=== PATIENT | male | born 1965 | race Caucasian/White ===

== ENCOUNTER → 2019-10-13 13:47 | Outpatient (BNVA) | payer MEDICAID, SELFPAY | PROVIDERS: Family Provider Family Medicine; PCP Family Medicine; Visit Provider Anesthesiology | DX: G89.29 Other chronic pain (principal); M54.16 Radiculopathy, lumbar region; M47.812 Spondylosis without myelopathy or radiculopathy, cervical region; Z79.891 Long term (current) use of opiate analgesic | CPT/HCPCS: 99214 ==

== ENCOUNTER → 2019-12-10 13:07 | Outpatient (BNVA) | payer MEDICAID, SELFPAY | PROVIDERS: Family Provider Family Medicine; PCP Family Medicine; Visit Provider Nurse Practitioner | DX: G89.29 Other chronic pain (principal); M54.16 Radiculopathy, lumbar region; M50.90 Cervical disc disorder, unspecified, unspecified cervical region; M47.812 Spondylosis without myelopathy or radiculopathy, cervical region; Z79.891 Long term (current) use of opiate analgesic | CPT/HCPCS: 99214 ==

== ENCOUNTER 2020-01-04 13:43 | Outpatient (CLI) | payer MEDICAID, SELFPAY ==
--- NOTE | 2020-01-04 13:49 | MR_ITS ---
WS: [id number] MRI CERVICAL SPINE HISTORY: increased neck pain COMPARISON: 07/01/2018 Technically limited evaluation of the cervical spine. There is significant motion artifact. Straightening of the normal cervical lordosis. Marrow edema and C6 and C7. There is slight anterior w edging of the C5 vertebral body but similar to the prior study. Small amount of edema in the interspi nous muscle at the C7 level. Signal within the cord is poorly evaluated due to artifact. No atrophy or enlargement is appreciated. Craniocervical junction, C1 and C2 relationship, odontoid process and soft tissues are normal. C2-C3: Bilateral osteophytes and facet disease. Moderate stenosis bilaterally but greater on the RIGH T. C3-C4: Osteophytic ridging and disc bulging. Mild encroachment upon the ventral thecal sac and a smal l central disc protrusion. Mild central and moderate bilateral foraminal narrowing. C4-C5: Osteophytic ridging and annular disc bulging and facet disease. Mild central and moderate bila teral foraminal stenosis. C5-C6: Near complete effacement of CSF around the cord. Annular disc bulging. Suspect there is probab ly a LEFT paracentral disc protrusion. There is at least moderate central and bilateral foraminal yusuf nosis. C6-C7: Osteophytic ridging with central disc protrusions. Severe central and bilateral foraminal sten osis. C7-T1: Normal. Paraspinal soft tissues are poorly visualized. MR/MR cervical spin wo con* [id number] IMPRESSION: 1. Quality of this examination is significantly limited by motion. Mild progre ssion of disc disease and stenoses since 07/01/2018. 2. Multilevel areas of significant stenosis. The exact etiology of the stenos is is difficult to visualize at each level. Combination of disc disease, facet disease and osteophytes. 3. Severe central and bilateral foraminal stenosis at C6-7. Mild progression s joanne the prior study. 4. Moderate bilateral foraminal stenosis at C2-3 and C3-4 and C4-5. 5. Moderate central and bilateral foraminal stenosis at C5-6. There is probabl y a LEFT paracentral disc protrusion at this level or asymmetric osteophyte.
== END 2020-01-04 13:44 | disposition home or self-care (01) ==
LOC: RADWPI 13:46
PROVIDERS: Family Provider Family Medicine; PCP Family Medicine; Visit Provider Nurse Practitioner
DX: M54.2 Cervicalgia (principal); M48.02 Spinal stenosis, cervical region
CPT/HCPCS: 72141

== ENCOUNTER → 2020-02-22 15:58 | Outpatient (BNVA) | payer MEDICAID, SELFPAY | PROVIDERS: Family Provider Family Medicine; PCP Family Medicine; Visit Provider Family Medicine | DX: E11.69 Type 2 diabetes mellitus with other specified complication (principal); E03.9 Hypothyroidism, unspecified; I10 Essential (primary) hypertension | CPT/HCPCS: 80053; 83036; 84439; 84443; 84481 ==

== ENCOUNTER → 2020-03-25 10:55 | Outpatient (BNVA) | payer MEDICAID, SELFPAY | PROVIDERS: Family Provider Family Medicine; PCP Family Medicine; Visit Provider Anesthesiology | DX: G89.29 Other chronic pain (principal); M54.42 Lumbago with sciatica, left side; M54.16 Radiculopathy, lumbar region; M47.812 Spondylosis without myelopathy or radiculopathy, cervical region; M54.9 Dorsalgia, unspecified; Z79.891 Long term (current) use of opiate analgesic | CPT/HCPCS: 99214 ==

== ENCOUNTER → 2020-05-27 10:07 | Outpatient (BNVA) | payer MEDICAID, SELFPAY | PROVIDERS: Family Provider Family Medicine; PCP Family Medicine; Visit Provider Anesthesiology | DX: G89.29 Other chronic pain (principal); M54.41 Lumbago with sciatica, right side; M54.16 Radiculopathy, lumbar region; M47.812 Spondylosis without myelopathy or radiculopathy, cervical region; M54.9 Dorsalgia, unspecified; Z79.891 Long term (current) use of opiate analgesic | CPT/HCPCS: 99214 ==

== ENCOUNTER → 2020-07-13 11:21 | Outpatient (BNVA) | payer MEDICAID, SELFPAY | PROVIDERS: Family Provider Family Medicine; PCP Family Medicine; Visit Provider Family Medicine | DX: E03.9 Hypothyroidism, unspecified (principal); I10 Essential (primary) hypertension; E11.69 Type 2 diabetes mellitus with other specified complication; F33.1 Major depressive disorder, recurrent, moderate; Z79.899 Other long term (current) drug therapy | CPT/HCPCS: 80053; 80061; 83036; 84439; 84443; 84481 ==

== ENCOUNTER → 2020-07-22 09:36 | Outpatient (BNVA) | payer MEDICAID, SELFPAY | PROVIDERS: Family Provider Family Medicine; PCP Family Medicine; Visit Provider Anesthesiology | DX: G89.29 Other chronic pain (principal); M54.41 Lumbago with sciatica, right side; M54.16 Radiculopathy, lumbar region; M47.812 Spondylosis without myelopathy or radiculopathy, cervical region; M54.9 Dorsalgia, unspecified; Z79.891 Long term (current) use of opiate analgesic | CPT/HCPCS: 99214 ==

== ENCOUNTER → 2020-08-18 13:55 | Outpatient (BNVA) | payer MEDICAID, SELFPAY | PROVIDERS: Family Provider Family Medicine; PCP Family Medicine; Visit Provider Anesthesiology | DX: G89.29 Other chronic pain (principal); M54.41 Lumbago with sciatica, right side; M54.16 Radiculopathy, lumbar region; M54.9 Dorsalgia, unspecified; M47.812 Spondylosis without myelopathy or radiculopathy, cervical region; Z79.891 Long term (current) use of opiate analgesic | CPT/HCPCS: 99213; 99214 ==

== ENCOUNTER 2020-10-06 11:02 | Outpatient (CLI) | payer MEDICAID, SELFPAY ==
--- NOTE | 2020-10-06 11:45 | MR_ITS ---
WS: [id number] MRI BRAIN WITHOUT CONTRAST HISTORY: R29.898 - Other symptoms and signs involving the musculoskeletal system, headaches COMPARISON: None available. TECHNIQUE: Diffusion imaging, multiplanar T1, T2 and FLAIR imaging obtained. No evidence for acute infarct or hemorrhage. Fernandes-white matter differentiation is normal. Increased T2 and FLAIR signal in the central dashawn with sparing of the periphery. There is additional scattered T2 and FLAIR signal hyperintensities in subcortical white matter. No prior large territory infarct or hemorrhage. Mild cerebral atrophy. Ventricles and extra-axial spaces are normal. Normal cerebellum. Near empty sella turcica. Posterior fossa is also unremarkable. Dural venous sinuses and cabazon of Batista demonstrate no abnormality on this unenhanced studies. Paranasal sinuses: Clear. Mastoid air cells: Normal. Calvarium and scalp: Intact. MR/MR head wo con* [id number] IMPRESSION: 1. No acute infarcts or hemorrhage. 2. Mild chronic microvascular ischemic disease throughout the white matter. 3. Increased signal in the central dashawn with sparing of the periphery. This ca n be seen with microangiopathic disease but also central pontine myelinolysis.
== END 2020-10-06 11:03 | disposition home or self-care (01) ==
PROVIDERS: Family Provider Family Medicine; PCP Family Medicine; Visit Provider Family Medicine
DX: R29.898 Other symptoms and signs involving the musculoskeletal system (principal); I67.82 Cerebral ischemia
CPT/HCPCS: 70551

== ENCOUNTER → 2020-12-28 14:30 | Outpatient (BNVA) | payer MEDICAID, SELFPAY | PROVIDERS: Family Provider Family Medicine; PCP Family Medicine; Visit Provider Family Medicine | DX: M54.16 Radiculopathy, lumbar region (principal); G89.29 Other chronic pain; R29.898 Other symptoms and signs involving the musculoskeletal system; M47.812 Spondylosis without myelopathy or radiculopathy, cervical region; M54.2 Cervicalgia; E11.69 Type 2 diabetes mellitus with other specified complication; I10 Essential (primary) hypertension; E03.9 Hypothyroidism, unspecified; I63.9 Cerebral infarction, unspecified | CPT/HCPCS: 80053; 83036; 84443 ==

== ENCOUNTER → 2021-05-11 11:00 | Outpatient (BNVA) | payer MEDICAID, SELFPAY | PROVIDERS: Family Provider Family Medicine; PCP Family Medicine; Visit Provider Family Medicine | DX: E03.9 Hypothyroidism, unspecified (principal); E11.69 Type 2 diabetes mellitus with other specified complication; I10 Essential (primary) hypertension; J44.9 Chronic obstructive pulmonary disease, unspecified; G44.309 Post-traumatic headache, unspecified, not intractable; I63.89 Other cerebral infarction; Z91.89 Other specified personal risk factors, not elsewhere classified | CPT/HCPCS: 80053; 83036; 84443; 85025 ==

== ENCOUNTER → 2021-08-09 10:40 | Outpatient (BNVA) | payer MEDICAID, SELFPAY | PROVIDERS: Family Provider Family Medicine; PCP Family Medicine; Visit Provider Family Medicine | DX: E03.9 Hypothyroidism, unspecified (principal) | CPT/HCPCS: 84439; 84443; 84481 ==

== ENCOUNTER → 2021-09-21 11:10 | Outpatient (BNVA) | payer MEDICAID, SELFPAY | PROVIDERS: Family Provider Family Medicine; PCP Family Medicine; Visit Provider Family Medicine | DX: E03.9 Hypothyroidism, unspecified (principal); E11.69 Type 2 diabetes mellitus with other specified complication; L98.9 Disorder of the skin and subcutaneous tissue, unspecified; I10 Essential (primary) hypertension | CPT/HCPCS: 80053; 83036; 84443; 85025 ==